=== PATIENT | male | born 1985 | race American Indian/Alaskan Native ===

== ENCOUNTER 2018-10-29 09:18 | Emergency (ER) | payer SELFPAY ==
[2018-10-29 09:33] VITALS: BP 134/80
--- NOTE | 2018-10-29 09:59 | Emergency Department Report ---
ED ENT HPI - General Chief complaint: Earache Stated complaint: (L) EAR PAIN Time Seen by Provider: 10/29/18 09:53 Source: patient Mode of arrival: Ambulatory Limitations: No Limitations - History of Present Illness MD complaint: tooth pain, ear pain -: week(s) Location: L ear Severity: mild Severity scale (0 -10): 3 Consistency: intermittent - Related Data Allergies Allergy/AdvReac Type Severity Reaction Status Date / Time No Known Allergies Allergy Unverified 10/29/18 09:20 ED Dental HPI - General Chief complaint: Earache Stated complaint: (L) EAR PAIN Time Seen by Provider: 10/29/18 09:53 Source: patient Mode of arrival: Ambulatory Limitations: No Limitations - Related Data Allergies Allergy/AdvReac Type Severity Reaction Status Date / Time No Known Allergies Allergy Unverified 10/29/18 09:20 ED Review of Systems ROS: Stated complaint: (L) EAR PAIN Other details as noted in HPI Comment: All other systems reviewed and negative Constitutional: denies: chills, fever Respiratory: denies: cough, orthopnea, shortness of breath, SOB with exertion, wheezing Musculoskeletal: denies: back pain ED Past Medical Hx - Past Medical History Previous Medical History?: No Hx Asthma: No - Surgical History Past Surgical History?: Yes Additional Surgical History: Jaw sx - Social History Smoking Status: Never Smoker Substance Use Type: None ED Physical Exam - General Limitations: No Limitations General appearance: alert, in no apparent distress - Head Head exam: Present: atraumatic, normocephalic, normal inspection - Eye Eye exam: Present: normal appearance - ENT ENT exam: Present: TM's normal bilaterally, other (dental caries.) - Neck Neck exam: Present: normal inspection, full ROM. Absent: tenderness, meningismus, lymphadenopathy, thyromegaly - Respiratory Respiratory exam: Present: normal lung sounds bilaterally - Cardiovascular Cardiovascular Exam: Present: regular rate, normal rhythm, normal heart sounds - GI/Abdominal GI/Abdominal exam: Present: soft, normal bowel sounds. Absent: distended, ten derness, guarding, rebound, rigid ED Course Vital Signs 10/29/18 09:31 Temperature 98.1 F Pulse Rate 79 Respiratory 16 Rate Blood Pressure 134/80 [Left] O2 Sat by Pulse 100 Oximetry Critical care attestation.: If time is entered above; I have spent that time in minutes in the direct care of this critically ill patient, excluding procedure time. ED Disposition Clinical Impression: Ear ache, Dental caries Disposition: TO HOME OR SELFCARE Is pt being admited?: No Condition: Stable Instructions: Dental Caries (ED) Referrals: [facility] [Provider Group] - 3-5 Days
== END 2018-10-29 10:07 | disposition home or self-care (01) ==
LOC: ED 09:18
DX: K02.9 Dental caries, unspecified (principal); H92.02 Otalgia, left ear; Z98.890 Other specified postprocedural states

== ENCOUNTER 2018-12-01 19:16 | Emergency (ER) | payer OTHER ==
[2018-12-01 19:52] VITALS: BP 118/72
--- NOTE | 2018-12-01 19:54 | Event Note ---
ED Screening Note Date of service: 12/01/18 Time: 19:49 ED Screening Note: This initial assessment/diagnostic orders/clinical plan/treatment(s) is/are subject to change based on patients health status, clinical progression and re- assessment by fellow clinical providers in the ED. Further treatment and workup at subsequent clinical providers discretion. Patient/guardian urged not to elope from the ED as their condition may be serious if not clinically assessed and managed. Initial orders include:
[2018-12-01] MEDS ORDERED: TETANUS,DIPH,PERTUSS(ACELL) VACCINE 0.5 ML SYRINGE IM ONE (19:57)
--- NOTE | 2018-12-01 19:59 | Emergency Department Report ---
Chief Complaint: Extremity Injury, Lower Stated Complaint: STEPPED ON NAIL Time Seen by Provider: 12/01/18 19:49 - HPI History of Present Illness: This is a 32 y.o. M. that presents to the ER after se left plantar foot after stepping on a alexandro nail this morning. Tetanus not UTD Reports intact skin but concerned of infection. Patient state initially it was bleeding. He cleaned wound with peroxide, soap, and water. Denies redness, swelling, drainage, pain, or break in skin. - ROS Review of Systems: Constitutional: denies: chills, fever Respiratory: denies: cough, shortness of breath, wheezing Cardiovascular: denies: chest pain, palpitations Gastrointestinal: denies: abdominal pain, nausea, diarrhea Skin: denies: lesions. denies: rash Neurological: denies: headache, weakness, paresthesias Psychiatric: denies: anxiety, depression - Exam Vital Signs: Vital Signs 12/01/18 19:49 Temperature 98.4 F Pulse Rate 105 H Respiratory 18 Rate Blood Pressure 118/72 O2 Sat by Pulse 98 Oximetry Vital Signs 12/01/18 12/01/18 19:49 20:28 Temperature 98.4 F Pulse Rate 105 H 98 H Respiratory 18 18 Rate Blood Pressure 118/72 O2 Sat by Pulse 98 100 Oximetry Physical Exam: General appearance: in no apparent distress, lethargic Respiratory exam: Present: normal lung sounds bilaterally. Absent: respiratory distress Cardiovascular Exam: Present: regular rate, normal rhythm. Absent: systolic murmur, diastolic murmur, rubs, gallop GI/Abdominal exam: Present: soft, normal bowel sounds. Absent: distended, tenderness, guarding, rebound Neurological exam: Present: alert, oriented X3, CN II-XII intact. Absent: motor sensory deficit Psychiatric exam: Absent: depressed, flat affect Skin exam: Present: warm, dry, intact, normal color. Absent: rash MSE screening note: Focused history and physical exam performed. Due to findings the following was ordered: ED Medical Decision Making - Medical Decision Making This is a 32-year-old male that presents to the ER with a non-emergency complaint. Patient is stable and was examined by me. He stepped on a alexandro nail this morning without break in skin, cellulitus, swelling, pain, or drainage. Tetanus immunization not UTD. Given boostrix 0.5 mL IM. Patient was instructed to Follow-up with a PCP. At time of discharge, the patient does not seem toxic or ill in appearance. No acute signs of distress noted. Patient agrees to discharge treatment plan of care. No further questions noted by the patient. ED Disposition for MSE Clinical Impression: Feared complaint without diagnosis Disposition: DC-01 TO HOME OR SELFCARE Is pt being admited?: No Does the pt Need Aspirin: No Condition: Stable Additional Instructions: Follow up with a primary care doctor. Return to the emergency room if you notice swelling, redness, pain, or fever. Referrals: [facility] [Outside] - 3-5 Days [facility] [Outside] - 3-5 Days [facility] [Outside] - 3-5 Days Time of Disposition: 20:27
== END 2018-12-01 21:15 | disposition home or self-care (01) ==
LOC: ED 19:16
DX: M79.672 Pain in left foot (principal); Z71.1 Person with feared health complaint in whom no diagnosis is made; W45.0XXA Nail entering through skin, initial encounter; Y93.89 Activity, other specified; Y92.89 Other specified places as the place of occurrence of the external cause; Y99.8 Other external cause status
CPT/HCPCS: 90471; 90715; 99282

== ENCOUNTER 2019-11-16 19:29 | Emergency (ER) | payer SELFPAY ==
[2019-11-16 19:36] VITALS: BP 138/85
--- NOTE | 2019-11-17 01:00 | Emergency Department Report ---
ED General Adult HPI - General Chief complaint: Earache Stated complaint: LEFT EAR PAIN/FACIAL NUMBNESS Time Seen by Provider: 11/17/19 00:39 Source: patient Mode of arrival: Ambulatory Limitations: No Limitations - History of Present Illness Initial comments: 33-year-old -[place] male presents to the emergency room reporting that he had travel to [place] and back and is been back for 1 week when he started having left ear pain. Patient states that he noticed his ear was popping. Patient states 1 day history of left side facial drooping. He reports that he has left side facial numbness but denies any injury nor tooth ache. 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 -: days(s) (1: Day 4 numbness and left facial drooping), week(s) (1: 4 left ear pain) - Related Data Previous Rx's Medication Instructions Recorded Last Taken Type Amoxicillin [Amoxicillin TAB] 875 mg PO BID #14 tablet 10/29/18 Unknown Rx Naproxen [Naprosyn] 500 mg PO BID #14 tablet 10/29/18 Unknown Rx Valacyclovir HCl [Valtrex] 1,000 mg PO TID 7 Days #21 tablet 11/17/19 Unknown Rx predniSONE [Deltasone] 60 mg PO QDAY 7 Days #21 tablet 11/17/19 Unknown Rx Allergies Allergy/AdvReac Type Severity Reaction Status Date / Time No Known Allergies Allergy Unverified 10/29/18 09:20 ED Review of Systems ROS: Stated complaint: LEFT EAR PAIN/FACIAL NUMBNESS Other details as noted in HPI ED Past Medical Hx - Past Medical History Previous Medical History?: Yes Hx Asthma: No Additional medical history: Murphy's Palsy - Surgical History Past Surgical History?: Yes Additional Surgical History: Jaw sx - Social History Smoking Status: Current Some Day Smoker Substance Use Type: None - Medications Home Medications: Home Medications Medication Instructions Recorded Confirmed Last Taken Type Amoxicillin [Amoxicillin TAB] 875 mg PO BID #14 tablet 10/29/18 Unknown Rx Naproxen [Naprosyn] 500 mg PO BID #14 tablet 10/29/18 Unknown Rx Valacyclovir HCl [Valtrex] 1,000 mg PO TID 7 Days #21 tablet 11/17/19 Unknown Rx predniSONE [Deltasone] 60 mg PO QDAY 7 Days #21 tablet 11/17/19 Unknown Rx ED Physical Exam - General Limitations: No Limitations General appearance: alert, in no apparent distress - Head Head exam: Present: atraumatic, normocephalic - ENT ENT exam: Present: mucous membranes moist - Expanded ENT Exam Expanded TM/Canal exam: Mastoid Tenderness: Left TM - Neck Neck exam: Present: normal inspection - Expanded Neurological Exam Expanded Cranial nerves: EOM's Intact: Normal, Facial Palsy without Forehead Movement: Normal Cerebellar function: Finger to Nose: Normal, Heel to Ball: Normal, Romberg: Normal Upper motor neuron: Luis Neglect: Normal, Pronator Drift: Normal, Sensory Extinction: Normal Sensory exam: Upper Extremity Light Touch: Normal, Upper Extremity Pin Prick: Normal, Upper Extremity Temperature: Normal, UE 2 Point Discrimination: Normal, Lower Extremity Light Touch: Normal, Lower Extremity Pin Prick: Normal, Lower Extremity Temperature: Normal, LE 2 Point Discrimination: Normal Motor strength exam: RUE: 4, LUE: 4, RLE: 4, LLE: 4 Best Eye Response (Yusuf): (4) open spontaneously Best Motor Response (Brigantine): (6) obeys commands Best Verbal Response (Brigantine): (5) oriented Brigantine Total: 15 ED Course Vital Signs 11/16/19 19:35 Temperature 98.1 F Pulse Rate 97 H Respiratory 20 Rate Blood Pressure 138/85 O2 Sat by Pulse 96 Oximetry ED Medical Decision Making - Medical Decision Making 33-year-old -[place] male presents to the emergency room reporting that he had travel to [place] and back and is been back for 1 week when he started having left ear pain. Patient states that he noticed his ear was popping. Patient states 1 day history of left side facial drooping. He reports that he has left side facial numbness but denies any injury nor tooth ache. 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 Patient appears to have Murphy's palsy. We will treat with prednisone 60 mg daily for 1 week and antiviral medication of Mariam tracks 1 g 3 times daily for 1 week. Patient is to follow-up with his primary care provider or neurologist. Critical care attestation.: If time is entered above; I have spent that time in minutes in the direct care of this critically ill patient, excluding procedure time. ED Disposition Clinical Impression: Left-sided Murphy's palsy Disposition: DC-01 TO HOME OR SELFCARE Is pt being admited?: No Does the pt Need Aspirin: No Condition: Stable Instructions: Murphy Palsy (ED) Additional Instructions: Please complete medications as prescribed. Follow-up with a neurologist if symptoms persist or gets worse Prescriptions: predniSONE [Deltasone] 60 mg PO QDAY 7 Days #21 tablet Valacyclovir HCl [Valtrex] 1,000 mg PO TID 7 Days #21 tablet Referrals: NITIN HERNÁNDEZ MD [Primary Care Provider] - 3-5 Days JACKY HADLEY MD [Referring] - 3-5 Days Forms: Work/School Release Form(ED)
[2019-11-17] MEDS ORDERED: predniSONE 20 MG TAB PO ONE (01:10)
== END 2019-11-17 01:30 | disposition home or self-care (01) ==
LOC: ED 19:29
DX: G51.0 Bell's palsy (principal); F17.200 Nicotine dependence, unspecified, uncomplicated; Z79.899 Other long term (current) drug therapy
CPT/HCPCS: 99282; J7512

== ENCOUNTER 2020-10-19 01:28 | Emergency (ER) | payer OTHER | END 2020-10-19 07:50 | disposition home or self-care (01) | LOC: ED 01:28 | CPT/HCPCS: 99281 ==